=== PATIENT | male | born 1940 | race Caucasian/White ===

== ENCOUNTER → 2020-10-15 | Outpatient (CLI) | payer OTHER, BC ==
[~2020-10-15] MED LIST: ALBUTEROL2.5 MG/0.5 INH; ASPIR-TRIN325 MG PO; CALCITRIOL0.25 MCG PO; CLONAZEPAM 1 MG1 M1 PO; COREG6.25 MG PO; DEMADEX20 MG PO; LOSARTAN POTAS100 MG PO; MAGNESIUM OXID400 MG PO; PULMICORT0.5 MG/22 INH; RENVELA800 MG PO; SIMVASTATIN40 MG PO; SYMBICORT160 MCG/4. INH; [UNRECOGNIZED DRUG - OTHER]; [UNRECOGNIZED DRUG - OTHER] PO; [UNRECOGNIZED DRUG - OTHER] PO
[2020-10-15 09:43] LABS: CREATININE 1.5 mg/dL (0.7-1.3)
== END ==
LOC: CAT 08:54
PROVIDERS: ATTEND Otolaryngology
DX: C44.229 Squamous cell carcinoma of skin of left ear and external auricular canal (principal); M47.812 Spondylosis without myelopathy or radiculopathy, cervical region; Z92.25 Personal history of immunosuppression therapy

== ENCOUNTER → 2020-10-19 | Outpatient (CLI) | payer OTHER, BC | LOC: PET 09:25 | PROVIDERS: ATTEND Otolaryngology | DX: C44.229 Squamous cell carcinoma of skin of left ear and external auricular canal (principal); C44.42 Squamous cell carcinoma of skin of scalp and neck; Z94.0 Kidney transplant status; Z92.25 Personal history of immunosuppression therapy ==

== ENCOUNTER → 2020-10-30 | Outpatient (CLI) | payer OTHER, BC ==
[~2020-10-30] MED LIST changes: +ASA81BEC PO; +ATORVASTATIN CA20 MG PO; +DOK100 MG PO; +FUROSEMIDE 20 M20 M1 PO; +MYCOPHENOLIC A360 MG PO; +PACERONE 200 M200 M1 PO; +PREDNISONE 5 MG5 M1 PO; +PROGRAF 1 MG1 MG PO; +TAMSULOSIN HCL0.4 MG PO
== END ==
LOC: LAB 08:00
DX: Z01.812 Encounter for preprocedural laboratory examination (principal); Z20.828 Contact with and (suspected) exposure to other viral communicable diseases

== ENCOUNTER 2020-11-04 07:48 | Observation (INO) | payer OTHER, BC ==
[~2020-11-04] VITALS: Ht 175.3 cm; Wt 84.8 kg
[2020-11-04 08:25] VITALS: BP 120/69
[2020-11-04 18:50] VITALS: BP 177/89
--- NOTE | 2020-11-04 21:00 | NUR ---
ADMISSION ASSESSMENT COMPLTED. PT IS ALERT AND ORIENTED. POST OP. LEFT SIDE OF FACE/NECK WITH NORBERTO HOOKED TO WALL CONTINOUS SUCTION. PT DENIES PAIN. WAS BALE TO GET UP TOBSC, VOIDING OKAY. SWALLOWING OK, ON /NC TO KEEP SATS ABOVE 92%. BP FINALLY NORMALISED.HOB ELEVATED, SCDS IN PLACE. WILL CONTINUE WITH POC TILL EOS.
[2020-11-05 00:25] VITALS: BP 128/63
[2020-11-05 04:14] VITALS: BP 127/72
--- NOTE | 2020-11-05 06:58 | O ---
[address] [address] OPERATIVE REPORT Name: MURPHY BECKWITH Alyssa Room #: 443-P [facility] Erika Rosen#: [id number] Admission: 11/04/20 Attend Phys: Roberto Montague MD Discharge: Date of : 42 Report #: [id number] THIS REPORT FOR: cc: John Paul Dubose,Roberto Elizondo MD ~ DATE OF SERVICE: 11/04/2020 LOCATION: [facility]. 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 3. Immunosuppression. 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 3. Immunosuppression. PROCEDURES PERFORMED: 1. Excision of malignant scalp lesion more than 4 square cm. 2. Left partial auriculectomy. 3. Adjacent tissue transfer scalp more than 15 cm2. 4. Adjacent tissue transfer ear 10 cm2. 5. Left sentinel lymph node biopsy. 6. Intermediate wound closures. PRIMARY SURGEON: Roberto Montague MD ASSISTANTS: None. ANESTHESIA: General. SPECIMENS: Left ear lesion frozen margins x 4 and left neck sentinel lymph node. COMPLICATIONS: None. ESTIMATED BLOOD LOSS: Approximately 150 mL. INDICATIONS FOR THE PROCEDURE: The patient is a 80-year-old male with a past medical history positive for kidney transplantation on subsequent immunosuppression, who has had several skin cancers in the recent past. He was seen by his shell trim operator and biopsy was taken of the left temporal scalp and [address] [place] [address] OPERATIVE REPORT Name: AMENA,MURPHY Alyssa [facility] [id number] Admission: 11/04/20 Attend Phys: Roberto Montague MD Discharge: Date of : 42 Report #: [id number] left superior helical lesion, which revealed poorly differentiated squamous cell carcinoma. He was evaluated in the outpatient clinic and preoperative workup revealed this to be isolated to the left temporal scalp and left external ear. He was counseled on benefits and risks of the procedures as outlined above and he agreed to proceed after signing consent in the office. DESCRIPTION OF PROCEDURE: The patient was identified in the preoperative area before being transported to the operating room and placed supine on the operating table. At this point, general endotracheal anesthesia was induced and a timeout was called to ensure patient identity. At this point, facial nerve monitors were inserted into the patient's left orbicularis oculi and left orbicularis chacho. Next, the lesion was marked out with a 10 mm margin around its periphery, which included a large portion of the temporal scalp and the entire cartilaginous portion of the pinna. This transected the conchal bowl just superior to the external auditory canal and exited directly superior to the anterior tragus into the postauricular crease and back superiorly. This was then injected with 1% lidocaine with 1:100,000 epinephrine solution. Next, using the Neoprobe a spot in left level 2 cervical lymph node chain was identified, the likely location of the left sentinel lymph node. A skin crease was marked and local was injected into this for a total of 20 mL between the ear and the neck. The patient was then prepped and draped in the normal fashion. Starting first the lesion was excised. A #15 blade was used to sharply excise along the skin markings and perform a left partial auriculectomy. This was dissected free and the plane just superficial to the deep temporalis fascia and posterior to the superficial temporal vessel coming into a subcutaneous and sub-SMAS plane just preauricularly before diving across the conchal bowl transecting the cartilage and anterior and posterior skin flaps. This was brought up in the postauricular crease to meet up with the left temporal incision line. After this was removed, it was marked and passed off for permanent specimen. Then, margins were excised using a sharp scissor and the margins were inked and then sent off for frozen section analysis. While this was being performed, I turned my attention to the patient's neck and performed a left sentinel lymph node biopsy using the gamma probe detection. The skin was incised using a #15 blade into the subcutaneous plane and then further carried deeply to a subplatysmal plane using a monopolar Bovie. Subplatysmal flaps were raised and the likely lymph node was found in left level 2, just posterior to the angle of the mandible. This was sharply excised and confirmed to be the likely sentinel lymph node and passed off for permanent specimen. Hemostasis was achieved using a combination of bipolar cautery and monopolar cautery and the deep layers of this were then closed in layered fashion using a 4-0 Vicryl stitch. At this point, we were still waiting on frozen sections to be returned. Therefore, wide undermining of the patient's defect was performed using a facelift scissor and the immediate subcutaneous plane in the temporal scalp and in a slightly deeper subgaleal plane post-auricularly into the scalp. At this point, the pathologist called back in that all margins were negative and [facility] [address] [place] [address] OPERATIVE REPORT Name: MURPHY BECKWITH Room #: 443-P [facility]#: [id number] Admission: 11/04/20 Attend Phys: Roberto Montague MD Discharge: Date of : 42 Report #: [id number] therefore, I elected to perform a left cervicofacial rotation advancement flap. Therefore, I incised the skin in a preauricular crease and around the earlobe and folded into the aforementioned cervical incision that I took the lymph node out of. This was carried all the way to within about 2 cm on the patient's midline at the level of the cricoid cartilage. Subcutaneous flap was raised very widely about the patient's left cheek and upper neck. Several bleeding vessels were controlled using bipolar cautery and this achieved excellent superior and posterior rotation and advancement to close the preauricular and superior auricular defect including the temporal scalp defect. This was sutured in position deeply using 2-0 Vicryl suture in an interrupted deep fashion. At this point, a 15-Kinyarwanda Elias drain was placed into the neck and cheek and passed out in the postauricular neck and tied into position using a 3-0 silk suture and placed to suction. Next, the postauricular defect was not yet closed; therefore, I elected to perform a releasing incision along the patient's posterior hairline in an arcing fashion. Therefore, a second rotational flap was raised and advanced superiorly and anteriorly to meet the previously advanced cervicofacial flap and the skin edges were sutured together in a layered fashion using 2-0 Vicryl, deep. Next, the remnant earlobe was overclosed superiorly using 5-0 fast absorbing gut and at this point, all skin incisions were closed in a running locking fashion using 5-0 fast absorbing gut suture. At this point, the excision of the tumor, the sentinel lymph node and the reconstruction was complete. I was pleased with the cosmetic and functional outcomes. There was a widely patent ear canal and no other troubling findings. I elected then out and at the end of the procedure, the patient was reversed from anesthesia and transported to the PACU in stable condition having suffered no untoward event. Please note that all instrument, sponge and needle counts were correct x 2. DISPOSITION: The patient given his distance that he lives away from the hospital and overall health status will be kept overnight for observation status and wound care. He will resume all home medications except for his blood thinners and will be given prescriptions for antibiotics and pain medication to be taken for the next week. I anticipate him being discharged home tomorrow pending any unforeseen circumstances and I will see him in approximately 1 week's time for drain removal and postoperative check. Wound care will include no hard straining or heavy lifting, daily showers after 24 hours from surgery and cleaning the incisions and applying a thick layer of petroleum ointment or bacitracin ointment to these several times per day. He should also perform drain care at home. <ELECTRONICALLY SIGNED> By: Roberto Montague MD 11/05/20 0658 [id number] Roberto Montague MD /nt
[2020-11-05 07:45] VITALS: BP 111/63
[2020-11-05 12:43] VITALS: BP 127/72
--- NOTE | 2020-11-05 13:45 | NUR ---
SURGEON HERE AT START OF SHIFT. DISCUSSED W/ PT AND RN INCISION AND DRAIN CARE FOR DISCHARGE. HAD CALLED AND TALKED TO PT'S . DRIED BLOOD REMOVED W/ GAUZE AND HYDROGEN PEROXIDE PER BACTROBAN OINTMENT TO INCISION. PT DISCHARGED AT THIS TIME W/ ALL BELONGINGS. INSTRUCTED IN PT INCISIONAL CARE AND FELT COMFORTABLE. F/U APPT NEXT WEEK.
--- NOTE | 2020-11-05 13:49 | NUR ---
ASSESSMENT: CM REVIEWED CHART. PT IS S/P CANCER EXCISION AND RECONSTRUCTION. PT REPORTS THAT HE LIVES IN A HOUSE WITH HIS . PT IS FULLY INDEPENDENT WITH ADLS AND AMBULATION. PT REPORTS NO STEPS HE HAS TO USE AT HOME. PT REPORTS HAVING HH IN THE PAST BUT UNSURE THE AGENCY. PT DOES NOT ANTICIPATE HE NEEDS HH OR WILL HAVE ANY NEEDS. PT HAS ORDERS TO DISCHARGE HOME TODAY NO NEEDS. AGREES WITH PLAN. CASE CLOSED.
== END 2020-11-05 13:57 | disposition home or self-care (01) ==
LOC: OR 07:48 → TBA 07:49 → OR 11:10 → 4S 18:23 → OR 18:24 → 4S 11-05 13:57
PROVIDERS: ADMIT Otolaryngology; ATTEND Otolaryngology
DX: C44.229 Squamous cell carcinoma of skin of left ear and external auricular canal (principal); C44.42 Squamous cell carcinoma of skin of scalp and neck; D84.9 Immunodeficiency, unspecified
CPT/HCPCS: 50010; 50101; 50386; 50417; 50455; 51412; 52220; 52225; 56526; 56528; 57006; 62110; 62900; 70005

== ENCOUNTER 2021-07-14 09:11 | Day surgery (SDC) | payer OTHER, BC ==
[~2021-07-14] VITALS: Ht 177.8 cm; Wt 72.6 kg
--- NOTE | ~2021-07-14 | O ---
[address] [address] OPERATIVE REPORT Name: MURPHY BECKWITH Room #: 150-4 [facility].#: [id number] Admission: 07/14/21 Attend Phys: Roberto Montague MD Discharge: Date of : 42 Report #: [id number] THIS REPORT FOR: cc: John Paul Dubose,oRberto Elizondo MD ~ cc: John Paul Dubose DO DATE OF SERVICE: 07/14/2021 DATE OF SURGERY: 07/14/2021 PREOPERATIVE DIAGNOSES: 1. Left scalp squamous cell carcinoma. 2. Left external ear squamous dysplasia, severe. 3. Chronic immunosuppression. 4. History of squamous cell carcinoma of the skin. POSTOPERATIVE DIAGNOSES: 1. Left scalp squamous cell carcinoma. 2. Left external ear squamous dysplasia, severe. 3. Chronic immunosuppression. 4. History of squamous cell carcinoma of the skin. PROCEDURES PERFORMED: 1. Excision, scalp lesion, malignant, 3 cm. 2. Excision, malignant skin lesion, left ear, 2 cm. 3. Adjacent tissue transfer, left external ear, less than 10 square cm. 4. Full-thickness skin graft to scalp, less than 20 square cm with primary closure of donor site. PRIMARY SURGEON: Roberto Montague MD CHEF BROILER OR FRY: None. ANESTHESIA: General. COMPLICATIONS: None. ESTIMATED BLOOD LOSS: 15 mL. SPECIMENS: 1. Left scalp lesion with orientation suture. 2. Peripheral margins for frozen section. 3. Left external ear lesion with marking suture. [address] [place] [address] OPERATIVE REPORT Name: AMENAMURPHY Alyssa Room #: 150-4 [facility]#: [id number] Admission: 07/14/21 Attend Phys: Roberto Montague MD Discharge: Date of : 42 Report #: [id number] IMPLANTS: None. INDICATIONS FOR THE PROCEDURE: The patient is a 81-year-old male with history of a kidney transplant in the past and subsequent chronic immunosuppression with many cutaneous malignancies, having undergone cutaneous malignant lesion removal multiple times in the past including one with me for external ear defect after Mohs surgery just approximately 1.5 years ago. He had a lesion of the left temporal scalp that continued to be present and getting larger. Biopsy was taken by myself in the outpatient clinic several weeks ago, which showed squamous cell carcinoma and also severe squamous dysplasia of the left external ear lesion, on the same ear that was previously excised. The decision was made at that time to proceed with wide local excision and reconstruction of these areas for both the scalp and the ear. He signed consent in the office. DESCRIPTION OF PROCEDURE: The patient was identified in the preoperative area before being transported to the operating room and placed supine on the operating table. At this point, general endotracheal anesthesia was induced and a timeout was called to ensure patient identity and procedure to be performed. Next, the lesions were both measured and marked with a skin marker and injected locally with 1% lidocaine with 1:100,000 epinephrine solution. In addition, local anesthetic was injected into the left superior chest skin for planned full-thickness skin graft harvest. Next, the patient was prepped and draped in the normal sterile fashion and starting first the left temporal scalp lesion was incised with a #15 blade scalpel around its periphery along the skin markings and orientation sutures placed at 12 o'clock, 3 o'clock, 6 o'clock and 9 o'clock. This was passed off for permanent specimen. Next, peripheral margins were obtained using a #15 blade and then margins were inked, and these were passed off for frozen section analysis. While this was being analyzed by the pathologist, I directed attention towards the left external ear lesion. Given that the patient only had a very small remnant of his left external ear left, the decision was made preoperatively with the patient and his to excise the remainder of the ear, which only included the patient's ear lobe. This was sharply excised. Hemostasis achieved and this was closed in layers using 4-0 Monocryl deep and 5-0 fast absorbing gut on the skin. By this point, the pathology had been returned with all margins being negative of any additional malignant disease. A small amount of undermining was performed under the temporal scalp lesion and the wound was collapsed slightly to make it more oblong in shape, totaling approximately 4 cm x 2 cm. This was marked out on the patient's chest wall for a total of 4.5 x 2.5 to account for graft contracture and a full-thickness skin graft was harvested from the patient's left superior chest wall. Hemostasis was achieved and this was also closed in layers using 4-0 Monocryl in deep layer and 4-0 running locking nylon along the skin. The skin graft was thinned slightly and transferred to the patient's left temporal scalp defect and sutured around [address] [address] OPERATIVE REPORT Name: AMENAMURPHY L Room #: 150-4 [facility] Jessika#: [id number] Admission: 07/14/21 Attend Phys: Roberto Montague MD Discharge: Date of : 42 Report #: [id number] its periphery using 5-0 fast absorbing gut suture. Following this, a bolster dressing comprised of Xeroform and mineral oil soaked cotton balls was placed and tied down to the skin graft using 2-0 silk sutures around its periphery. At this point, all instrument, sponge, and needle counts were correct x2. I was satisfied with the patient's excision and reconstruction, and he was reversed from anesthesia and transported to PACU in stable condition. DISPOSITION: The patient will be discharged home today after meeting general discharge criteria. He has been given prescriptions for pain medication and antibiotics to be used as directed. Wound care instructions have been detailed and given to him in a written form. I will followup with him in approximately 10 days' time for a wound check, pathology review, and suture and pressure dressing removal. They may call our office with any concerns or issues. By: [phone] Roberto Montague MD /nt
[~2021-07-14 09:11] MED LIST changes: +ATORVASTATIN CA80 MG PO; -PREDNISONE 5 MG5 M1 PO; +PREDNISONE 5 MG5 MG PO; +PROGRAF0.5 MG PO
[2021-07-14 12:00] VITALS: BP 122/56
[2021-07-14 14:05] VITALS: BP 122/56
--- NOTE | 2021-07-16 21:09 | PATH ---
[facility] [place] [address] PATHOLOGY RPT PROCEDURE Name: BULL BECKWITH Room #: DEP [facility]#: [id number] Admission: 07/14/21 Date of : 42 Discharge: 07/14/21 Report #: [id number] Path Case #: [id number] LCA Accession Number: [id number] . 01 Material submitted: . PART A: scalp - LEFT SCALP PERIPHERAL MARGIN 12-3 INKED FS. Modifiers: left PART B: scalp - LEFT SCALP PERIPHERAL MARGIN 3-6 INKED FS. Modifiers: left PART C: scalp - LEFT SCALP PERIPHERAL MARGIN 6-9 INKED FS. Modifiers: left PART D: scalp - LEFT SCALP PERIPHERAL MARGIN 9-12 INKED FS. Modifiers: left PART E: scalp - LEFT SCALP LESION. Modifiers: left PART F: ear - LEFT EAR LESION PRIMARY TUMOR SITE MARKED. Modifiers: left . 02 Frozen section diagnosis: . FROZEN SECTION DIAGNOSIS: FSA1: 12:00 to 3:00 margin: - Negative. . FSB1: 3:00 to 6:00 margin: - Negative. . FSC1: 6:00 to 9:00 margin: - Negative. . FSD1: 9:00 to 12:00 margin: - Negative. . The report was conveyed to Dr. Montague by Dr. Harrell on 07/14/2021 at 13:00 and a written report is placed in the patient's chart. (ANK:durga; 07/15/2021) . FROZEN SECTION GROSS DESCRIPTION: A. Received labeled with the patient's name and "peripheral margin 12:00 to 3:00, margin inked, left scalp lesion", is a thin skin ellipse which measures 2.0 x 0.5 x 0.5 cm. The specimen is inked on the final margin per surgeon. The specimen is entirely submitted for frozen section diagnosis in FSA1 and subsequently in A1. . B. Received labeled with the patient's name and "peripheral margin 3:00 to 6:00 margin inked, left scalp lesion", consists of a thin skin ellipse which measured 1.5 x 0.5 x 0.5 cm. The specimen is inked by the surgeon as the final margin and is entirely submitted in FSB1 and subsequently in B1 in formalin. . C. Received labeled with the patient's name and "peripheral margin 6:00 to 9:00 margin inked, left scalp lesion", consists of a thin skin ellipse which measured 1.0 x 0.5 x 0.5 cm. The specimen is inked per surgeon as the final margin and is entirely submitted in FSC1 and subsequently in block C1 in formalin. . [address] [address] PATHOLOGY RPT PROCEDURE Name: BULL BECKWITH Room #: DEP [facility] Jessika#: [id number] Admission: 07/14/21 Date of : 42 Discharge: 07/14/21 Report #: [id number] Path Case #: [id number] D. Received labeled with the patient's name and "peripheral margin 9:00 to 12:00 margin inked, left scalp lesion", consists of a skin ellipse which measured 1.2 x 0.5 x 0.5 cm. The margin is inked per surgeon as the final margin and is entirely submitted in FSD1 and subsequently in block D1 in formalin. (ANK:durga; 07/15/2021) . Frozen section performed at [facility], [address] , [place] [address]. BARRY/MARITO . 02 Diagnosis: A. Left scalp, peripheral margin, 12-3:00, excision: - Mild actinic keratosis and solar keratosis. - Negative for malignancy. . B. Left scalp, peripheral margin, 3-6:00, excision: - Mild actinic keratosis with solar keratosis. - Negative for malignancy. . C. Left scalp, peripheral margin, 6-9:00, excision: - Skin with mild actinic keratosis. - Negative for malignancy. . D. Left scalp, peripheral margin, 9-12:00, excision: - Mild actinic keratosis. - Negative for malignancy. . E. Left scalp lesion, excision: - KERATINIZING MODERATELY DIFFERENTIATED SQUAMOUS CELL CARCINOMA, 1.3 CM. - ALL PERIPHERAL AND DEEP MARGINS ARE NEGATIVE FOR MALIGNANCY. . F. Left ear lesion, excision: - RESIDUAL SQUAMOUS CELL CARCINOMA WITH KERATINIZATION. - Prior biopsy site changes with granulation tissue and focal actinic keratosis. - Dermal melanocytic lesion, consistent with intradermal melanocytic nevus - All surgical margins are negative for malignancy. - Please see diagnostic comment. LBQ 07/16/2021 2000 Local . 02 Comment: A pharmaceutical service representative section of left ear lesion is co-reviewed with Dr. Adriane Siu who agrees on 07/16/2021. (REECE/db; 07/16/2021) . 02 [facility] [address] [place] [address] PATHOLOGY RPT PROCEDURE Name: BULL BECKWITH Room #: [facility]#: [id number] Admission: 07/14/21 Date of : 42 Discharge: 07/14/21 Report #: [id number] Path Case #: [id number] Electronically signed: . Jessenia Harrell MD, Pathologist NPI- [id number] . 01 Gross description: . A-D. SEE FROZEN SECTION FOR GROSS DESCRIPTION . E. The specimen is received in formalin, labeled "Bull Beckwith, left scalp lesion". Received is an oriented circular excision of skin measuring 2.5 x 2.5 x 0.4 cm in greatest dimensions. A double long suture designates the 12:00 margin, a single long suture designates the 3:00 margin, a double short suture designates the 6:00 margin, and a single short suture designates the 9:00 margin. The specimen is inked as follows: 12 to 3:00-yellow, 3 to 6:00-blue, and 6 to 12:00-black. The epidermal surface displays a well-defined, depressed and light cordova previous biopsy site measuring 1.0 x 0.9 cm. The specimen is sectioned into 10 pieces and entirely submitted from 12:00 to 6:00 aspects in cassettes E1 through E5, with the 12:00 and 6:00 aspects placed in cassette E5. . F. The specimen is received in formalin, labeled "Bull Beckwith, left ear lesion". Received is a large tag-like segment of skin measuring 3.1 x 2.4 x 1.0 cm in greatest dimensions. The epidermal surface is pale cordova to slightly pink-cordova and wrinkled in appearance with a suture present, which designates the primary tumor site. The epidermal surface in this area is inked orange. The surgical margin is inked black. The specimen is sectioned into eight pieces and entirely submitted in cassettes F1 through F7, with the primary tumor site area submitted in cassette F1. (CAA; 07/15/2021) QAC/QTP 07/15/2021 1544 Local . 02 Pathologist provided ICD-10: L57.0, L57.8, C44.42, C44.229 . 02 CPT . 430561, 404231, 683403, 203068, 220375, 202356, 094714, 626107, 085706, 234462 Specimen Comment: A courtesy copy of this report has been sent to [phone] Specimen Comment: Report sent to Performed at: [address] [facility] [address], [place], [place] [id number] MD Rakesh Light MD Phone: [phone] Performed at: [address] [facility] [address] [id number] MD Paige Clarke MD Phone: [phone]
== END 2021-07-14 14:40 | disposition home or self-care (01) ==
LOC: OR 09:11 → TBA 09:12 → OR 09:41
PROVIDERS: ATTEND Otolaryngology
DX: C44.42 Squamous cell carcinoma of skin of scalp and neck (principal); C44.229 Squamous cell carcinoma of skin of left ear and external auricular canal; L57.0 Actinic keratosis; L57.8 Other skin changes due to chronic exposure to nonionizing radiation; D84.89 Other immunodeficiencies; I48.91 Unspecified atrial fibrillation; I50.9 Heart failure, unspecified; I25.2 Old myocardial infarction; E78.00 Pure hypercholesterolemia, unspecified; Z98.890 Other specified postprocedural states; Z79.899 Other long term (current) drug therapy; Z96.641 Presence of right artificial hip joint; Z20.822 Contact with and (suspected) exposure to COVID-19; Z94.0 Kidney transplant status; Z85.828 Personal history of other malignant neoplasm of skin; Z79.01 Long term (current) use of anticoagulants
CPT/HCPCS: 50010; 50101; 50386; 50398; 51412; 56526; 56528; 57006; 62110; 62900; 70005